=== PATIENT | female | born 1990 | race Two or more races ===

== ENCOUNTER → 2020-01-12 | Outpatient (CLI) | payer OTHER | END | disposition home or self-care (01) | LOC: PRENATAL 14:53 | PROVIDERS: ATTEND Specialist | DX: O35.3XX1 Maternal care for (suspected) damage to fetus from viral disease in mother, fetus 1 (principal) ==

== ENCOUNTER 2020-04-30 03:58 | Inpatient (IN) | payer OTHER ==
[~2020-04-30] VITALS: Ht 157.5 cm; Wt 64.4 kg
[2020-04-30] MEDS ORDERED: PRENATAL TABLE1 EAC3 PO (04:31)
== END 2020-05-02 15:50 | disposition home or self-care (01) | DRG 807 ==
LOC: OBS/DEL 03:58 → OB/GYN 14:25 → LDR 14:25 → OBS/DEL 14:25 → OB/GYN 23:30
PROVIDERS: ADMIT Specialist; ATTEND Specialist
PROC: 10E0XZZ Delivery of Products of Conception, External Approach (ICD-10-PCS; principal; 2020-04-30)
PROC: 0W8NXZZ Division of Female Perineum, External Approach (ICD-10-PCS; 2020-04-30)
PROC: 3E033VJ Introduction of Other Hormone into Peripheral Vein, Percutaneous Approach (ICD-10-PCS; 2020-04-30)
PROC: 4A1HXFZ Monitoring of Products of Conception, Cardiac Rhythm, External Approach (ICD-10-PCS; 2020-04-30)
DX: O80 Encounter for full-term uncomplicated delivery (principal); Z37.0 Single live birth; Z20.828 Contact with and (suspected) exposure to other viral communicable diseases; Z3A.38 38 weeks gestation of pregnancy